=== PATIENT | female | born 1965 | race Hispanic/Latino ===

== ENCOUNTER 2022-01-01 11:52 | Emergency (ER) | payer OTHER ==
[~2022-01-01] VITALS: Ht 152.4 cm; Wt 86.2 kg
[2022-01-01 14:00] VITALS: BP 130/72
== END 2022-01-01 14:00 | disposition home or self-care (01) ==
LOC: EDH 11:52
DX: H43.12 Vitreous hemorrhage, left eye (principal); H43.812 Vitreous degeneration, left eye; E78.00 Pure hypercholesterolemia, unspecified; I10 Essential (primary) hypertension

== ENCOUNTER 2022-04-04 22:46 | Emergency (ER) | payer OTHER ==
[~2022-04-04] VITALS: Ht 157.5 cm; Wt 81.6 kg
[2022-04-04] MEDS ORDERED: ACETAMINOPHEN 500 MG TABLET PO ONE (23:00)
[2022-04-04] MEDS ORDERED: AMOX/CLAV 875/125MG TAB PO ONE (23:00)
[2022-04-04] MEDS ORDERED: TETANUS/DIPHTHERIA TOXOID [ADULT] 0.5 ML VIAL IM ONE ×2 (23:00→23:07)
[2022-04-04] MEDS ORDERED: AMOX/CLAV 500/125MG TAB PO ONE (23:06)
[2022-04-04] MEDS ORDERED: ACETAMINOPHEN 500 MG TABLET ONE (23:06)
[2022-04-04] MEDS ORDERED: AMOX1TAB16 PO (23:07)
[2022-04-05 00:17] VITALS: BP 141/57
== END 2022-04-05 00:23 | disposition home or self-care (01) ==
LOC: EDH 22:46
DX: S60.312A Abrasion of left thumb, initial encounter (principal); E10.9 Type 1 diabetes mellitus without complications; E78.00 Pure hypercholesterolemia, unspecified; I10 Essential (primary) hypertension; W54.0XXA Bitten by dog, initial encounter; Y93.89 Activity, other specified; Y92.89 Other specified places as the place of occurrence of the external cause; Y99.8 Other external cause status
CPT/HCPCS: 90471; 90714